=== PATIENT | male | born 1960 | race Caucasian/White ===

== ENCOUNTER 2024-02-03 09:43 | Emergency (ER) | payer MEDICAID, SELFPAY ==
[2024-02-03 09:53] VITALS: BP 107/73; PULSE 102; RESP 19; TEMP 36.9; O2SAT 98; BMI 30.7
--- NOTE | 2024-02-03 10:06 | PD.EDSKIN ---
ED Skin Abcess FB-RME/HPI General Chief complaint: Skin/Abscess/Foreign Body Stated complaint: BUMPS TO BACK TO SCALP/ PAIN IRRITATION Time Seen by Provider: 02/03/24 09:49 Arrival date/time: 02/03/24 09:43 63-year-old male presents emergency department today complaints of rash which is painful ongoing since Saturday patient ports no fever nausea or vomiting no dizziness or weakness Limitations: no limitations Related Data Home Medications ?Medication ?Instructions ?Recorded ?Confirmed clopidogrel 75 mg tablet 75 mg PO DAILY ##0 07/24/13 08/31/20 lisinopril 20 mg tablet (Zestril) 20 mg PO QDAY #0 tabs 07/24/13 08/31/20 albuterol sulfate 90 mcg/actuation 2 puff inhalation Q6H PRN sob 08/31/20 08/31/20 aerosol inhaler atorvastatin 40 mg tablet 40 mg PO QDAY 08/31/20 08/31/20 buspirone 15 mg tablet 15 mg PO BID 08/31/20 08/31/20 fluconazole 200 mg tablet 400 mg PO BID 08/31/20 08/31/20 fluticasone 250 mcg-salmeterol 50 1 inh inhalation QDAY 08/31/20 08/31/20 mcg/dose blistr powdr for inhalation insulin regular human 100 unit/mL 5 - 7 unit subcut TID 08/31/20 08/31/20 injection solution (Humulin R Regular U-100 Insulin) losartan 50 mg tablet 50 mg PO QDAY 08/31/20 08/31/20 montelukast 10 mg tablet 10 mg PO QDAY 08/31/20 08/31/20 Previous Rx's ?Medication ?Instructions ?Recorded meclizine 25 mg tablet 25 mg PO QDAY PRN dizziness #14 02/18/23 tabs hydrocodone 5 mg-acetaminophen 325 1 tab PO BID PRN pain #10 tabs 02/03/24 mg tablet prednisone 10 mg tablet 30 mg (3 x 10 mg) PO BID 3 days 02/03/24 #18 tabs valacyclovir 1 gram tablet 1,000 mg PO TID 7 days #21 tabs 02/03/24 Allergies Allergy/AdvReac Type Severity Reaction Status Date / Time No Known Allergies Allergy Verified 08/31/20 09:25 Review of Systems Review of Systems Systems Reviewed: All systems reviewed, normal except as documented Constitutional Constitutional: Reports system reviewed and no additional complaints, except as documented, Denies fever(s) and Denies headache(s) Eyes Eyes: Reports system reviewed and no additional complaints, except as documented and Denies blurry vision ENT Ears, Nose, Mouth, and Throat: Reports system reviewed and no additional complaints, except as documented, Denies headache(s), Denies nasal congestion and Denies nasal discharge Cardiovascular Cardiovascular: Reports system reviewed and no additional complaints, except as documented, Denies chest pain and Denies dyspnea Respiratory Respiratory: Reports system reviewed and no additional complaints, except as documented, Denies chest congestion, Denies cough and Denies dyspnea Gastrointestinal Gastrointestinal: Reports system reviewed and no additional complaints, except as documented and Denies abdominal pain Integumentary/Breasts Skin/Breast: Reports system reviewed and no additional complaints, except as documented, Reports pruritus, Reports rash and Reports other (Painful rash scalp and neck) Neurologic Neurologic: Reports system reviewed and no additional complaints, except as documented, Reports as per HPI and Denies headache(s) Past Medical History Past Medical History NEUROLOGIC: Positive Neurological Disorders and Cerebrovascular Accident CARDIAC: Positive Cardiac Disorders and Hypertension; Negative Congestive Heart Failure RESPIRATORY: Positive Asthma; Negative Chronic Obstructive Pulmonary Disease (COPD) GENITOURINARY: Negative Renal Disease ENDOCRINE: Positive Diabetes Mellitus Type 2; Negative Diabetes Mellitus Type 1 PSYCHO/SOCIAL: Positive Anxiety Social History SMOKING STATUS: Never smoker SUBSTANCE USE: does not use ED Exam General Limitations: Present no limitations General appearance: Present alert and in no apparent distress Expanded Head Exam Head image: 1. Rash consistent with shingles Eye Eye exam: Present normal appearance, PERRL and EOMI ENT ENT exam: Present normal exam, normal oropharynx and mucous membranes moist Neck Neck exam: Present normal inspection, full ROM and trachea midline Chest Chest inspection: Present normal inspection and symmetric chest wall rise Respiratory Respiratory exam: Present normal lung sounds bilaterally Cardiovascular Cardiovascular exam: Present regular rate, normal rhythm and normal heart sounds Abdominal Exam Abdominal exam: Present soft and normal bowel sounds Extremities Exam Extremities exam: Present normal inspection and full ROM Back Exam Back exam: Present normal inspection and full ROM Neurological Exam Neurological exam: Present alert, oriented X3 and CN II-XII intact Psychiatric Psychiatric exam: Present normal affect and normal mood Skin Skin exam: Present warm, dry, intact and rash (Rash, shingles) Course Quality Measures none Orders Category Date Time Status Dexamethasone Inj [Decadron Inj] Med 02/03/24 10:03 Discontinued 10 mg PO X1 ONE Ketorolac Inj [Toradol Inj] Med 02/03/24 10:03 Discontinued 30 mg IM X1 ONE Vital Signs Vital signs: Vital Signs Temperature 98.5 F 02/03/24 09:53 Pulse Rate 102 H 02/03/24 09:53 Respiratory Rate 19 02/03/24 09:53 Blood Pressure 107/73 02/03/24 09:53 Pulse Oximetry (%) 98 02/03/24 09:53 Oxygen Delivery Method Room Air 02/03/24 09:53 O2 saturation 98% room air within normal limits Skin / Abscess / Foreign Body MDM Narrative MDM Narrative:: 63-year-old male presents emergency department today complaints of rash which is painful ongoing since Saturday patient ports no fever nausea or vomiting no dizziness or weakness On exam patient does not appear ill or toxic patient's not appear make a distress patient does have rash highly consistent with shingles Patient be treated with valacyclovir and prednisone as well as pain medication Patient discharged home in no distress to follow-up with primary care doctor in the next 24 to 48 hours and for any worsening symptoms to return to the ER immediately Patient data External records reviewed:: [facility] previous records Clinical information provided by:: patient Social determinants that could affect healthcare access:: none Patient has the following chronic illnesses:: See history How is presenting disease/condition affected by chronic disease/condition?: exacerbated by Evaluation data The following diagnostics were reviewed and interpreted by me:: other (specify) (N/A) Lab and/or radiology exams considered but not ordered:: Consider not ordered Interpretation Summary: N/A Medications / Prescriptions Medications or Prescriptions considered but not ordered:: Given Medication administrations:: Medication Administration History Discontinued Medications Dexamethasone Sodium Phosphate (Dexamethasone Sod Phos Inj 10 Mg/Ml Vial) 10 mg PO X1 ONE Stop: 02/03/24 10:04 Last Admin: 02/03/24 10:35 Dose: 10 mg Documented By: LF Ketorolac Tromethamine (Ketorolac Inj 30 Mg/Ml Vial) 30 mg IM X1 ONE Stop: 02/03/24 10:04 Last Admin: 02/03/24 10:35 Dose: 30 mg Documented By: ELI Given Consultations Consultation(s) initiated? (list below): No Diagnosis Skin/Abscess Differential Diagnosis: abscess of skin or subcutaneous tissue, urticaria, herpes zoster and cellulitis Most likely diagnosis given after review of the tests above:: Shingles Admission Indicated Admission indicated?: not indicated Admission Request Was there a request for admission?: No Disposition Plan Disposition Plan: Discharge Discharge Attestation Discharge Attestation: The patient and all family members were given an opportunity to ask questions and understood the discharge instructions. Discharge instructions specifically effects, indications for sooner follow up or return to the emergency department, and the expected course of current diagnosis. Patient condition: Stable Discharge Plan Plan Patient Disposition: HOME (Self Care) Disposition Comment: Stable Prescriptions/Referrals Prescriptions/Med Rec: New prednisone 10 mg tablet 30 mg PO BID 3 Days Qty: 18 0RF valacyclovir 1 gram tablet 1,000 mg PO TID 7 Days Qty: 21 0RF hydrocodone-acetaminophen 5-325 mg tablet 1 tab PO BID MDD 10 PRN (Reason: pain) Qty: 10 0RF No Action lisinopril [Zestril] 20 MG tablet 20 mg PO QDAY Qty: 0 clopidogrel 75 MG tablet 75 mg PO DAILY Qty: 0 losartan 50 mg tablet 50 mg PO QDAY atorvastatin 40 mg tablet 40 mg PO QDAY fluticasone propion-salmeterol 250-50 mcg/dose blister with device 1 inh INHALATION QDAY fluconazole 200 mg Tablet 400 mg PO BID Humulin R Regular U-100 Insuln 100 unit/mL solution 5 - 7 unit subcut TID montelukast 10 mg tablet 10 mg PO QDAY albuterol sulfate 90 mcg/actuation Hfa Aerosol Inhaler 2 puff INHALATION Q6H PRN (Reason: sob) buspirone 15 mg tablet 15 mg PO BID meclizine 25 mg tablet 25 mg PO QDAY PRN (Reason: dizziness) Qty: 14 0RF Problem List Clinical Impression: Shingles Patient/Caregiver Discharge Instructions Education Materials: ED Shingles (Herpes Zoster) Additional Instructions: Please follow up with your primary care doctor in the next 24-48hrs for any worsening symptoms return here immediately Print Language: Citizen Of [place] Stand Alone Forms: Radha Award Info., Work/School Release, Patient Portal Info Letter PA/MEN'S LOCKER ROOM ATTENDANT Supervising Physician PA/MEN'S LOCKER ROOM ATTENDANT Supervising Physician: Dr. Dinh
[2024-02-03] MEDS: KETOROLAC INJ 30 MG/ML VIAL IM (10:35)
[2024-02-03] MEDS: DEXAMETHASONE SOD PHOS INJ 10 MG/ML VIAL PO (10:35)
== END 2024-02-03 11:23 | disposition home or self-care (01) ==
PROVIDERS: Emergency Provider Emergency Medicine; PCP Nurse Practitioner Family
DX: B02.9 Zoster without complications (principal)
CPT/HCPCS: 96372; 99283; J1100; J1885

== ENCOUNTER 2024-04-09 11:28 | Outpatient (RCR) | payer MEDICAID, SELFPAY ==
--- NOTE | 2024-04-09 13:45 | CTCFLWUP_ITS ---
Patient: VIRAJ BARTHOLOMEW : 1960 Page 2 of 2 FOLLOW UP NOTE DATE OF SERVICE: 04/09/2024 NAME: VIRAJ BARTHOLOMEW ACCOUNT: [id number] : 1960 AGE: 63 INTERVAL HISTORY: Patient here for follow-up on CLL. Patient companied by his . Patient says he is fatigued all t he time. He has a diabetes for which he is on multiple medications. He also has fatty liver. Denie s any bleeding or bruising. No night sweats no appetite changes or weight loss. No swollen glands ONCOLOGY HISTORY: DIAGNOSIS: Chronic lymphocytic leukemia DATE OF DIAGNOSIS: 05/31/2023 HISTORY OF PRESENT ILLNESS: Patient is here for follow-up for CLL. Patient is accompanied by . Denies any bleeding or bruisi ng. No night sweats no appetite changes or weight loss. No swollen glands Flow cytometry was ordered due to leukocytosis. Flow cytometry showed abnormal CD5+ B-cell populati on 21% of leukocytes with B-cell chronic lymphocytic leukemia/small lymphocytic lymphoma (CLL/SLL) im munophenotype, 11/14/2023. CT of chest abdomen and pelvis done on 12/16/2023 showed stable cavitary ma ss left upper lobe, multiple periaortic pericaval lymph nodes, 12/16/2023. Patient only complaint is feeling tired, reports he has been feeling tired for many years. Patient reports good appetite. Jaqueline ent ambulating well without assistance. Patient former smoker for 15 years, quit ?long time ago?. P atient denies fever, denies night sweats, abdominal pain chest pain cough weight loss. HISTORY: Viraj Drake is a 63-year-old Yoruba-speaking male, retired. Patient was refe rred due to leukocytosis. WBCs are 15.0 and lymphs absolute are 6.8, 10/09/2023. Patient reports fee ling tired for many years. Patient denies any other concerns or complaints. 05/31/2023: WBC 13.9, ANC 5.7, lymphs absolute 6.9, hemoglobin 15.5, MCV 97, platelets 275,000, creatin ine 0.77 10/09/2023: WBC 15.0, ANC 6.8, lymphs absolute 6.8, hemoglobin 15.3, MCV 98, platelets 256,000, creati nine 0.80 OTHER MEDICAL HISTORY/CONDITIONS: HTN Hyperlipidemia Diabetes CVA -12/2011 LLE?vein?stripping?-?1984 FAMILY HISTORY: Denies cancer in family Family Cancer History - Denied SOCIAL HISTORY: Occupational History - Retired/disabled Education Level - Completed 10th grade Marital Status - Tobacco Use Note - Quit long time ago - Smoked pack every 2 days for 15yrs ETOH Use Note - Denies Drug Note - Denies Abuse/Neglect Note - Denies Social History Note 2 - Lives wtih MEDICATIONS: 1. amlodipine - 10 mg 1 tab Daily 2. atorvastatin - 40 mg 1 tab Daily 3. Brilinta - 90 mg 1 tab Daily 4. cetirizine - 10 mg 1 tab Daily 5. ibuprofen - 800 mg 1 tab Three times a day 6. Lantus Solostar - 100 unit/mL (3 mL) 50 Unit Daily 7. NovoLIN R Flexpen - 100 unit/mL (3 mL) 15 Units Three times a day Medications Last Reconciled by Snehal Marcos MA on 04/09/2024 ALLERGIES: No Known Drug Allergies REVIEW OF SYSTEMS: A complete 14-point review of systems was performed and is negative except as noted in interval histo ry. PHYSICAL EXAMINATION: VITAL SIGNS: PAIN: 0 - No pain ECOG Performance Status: 1 - Symptomatic; ambulatory; restricted in strenuous activity GENERAL APPEARANCE: Appears well, in no apparent distress, appropriately interactive. HEENT: Normocephalic, no temporal wasting, normal conjunctiva, no scleral icterus, normal hearing, li ps without lesions, neck normal range of motion. CARDIOVASCULAR: Not assessed. PULMONARY: Normal respiratory effort, no respiratory distress or use of accessory muscles, speaking i n full sentences, no tachypnea. EXTREMITIES: No pedal edema or cyanosis. SKIN: Normal skin appearance. NEUROLOGIC: Alert and oriented x4. PSHYCHIATRIC: Appropriate affect, mood normal, behavior normal, intact thought and speech. LABORATORY DATA: I have personally reviewed and interpreted each of the patient?s relevant lab tests, abnormal finding s are below: Date ASSESSMENT/PLAN: Chronic lymphocytic leukemia Patient do not have any palpable lymph nodes Reviewed old scans As patient have fatigue we can rescan his body with PET scan to see lymph node size Also patient have lytic lesion in the lung which is cavitary I will check for tuberculosis as well as valley fever Will send pulmonary consult to see if patient has any treatable lung lesion Patient may benefit from bronchoscopy I will follow on the labs Extensively counseled on plant-based diet today reduced risk of malignancy as well as to help with di abetic control CBC CMP QuantiFERON valley fever IgM testing RETURN TO CLINIC: 4 weeks BILLING AND COMPLIANCE: I reviewed external records from providers outside my specialty as summarized above. I spent a total of 50 minutes on this patient?s care on the day of their visit excluding time spent related to any bi lled procedures. This time includes time spent with the patient as well as time spent documenting in the medical record, reviewing patients records and tests, obtaining history, placing orders, communi cating with other healthcare professionals, counseling the patient, family or caregiver, and/or care coordination for the diagnoses above. Electronically Signed by: David Lyons MD T: 1:42 PM CC: PCP: Sandeep([facility])[place] Referring: Sandeep([facility])[place] This document was completed utilizing speech recognition software. Grammatical errors, random word in sertions, pronoun errors, and incomplete sentences are an occasional consequence of this system due t o software limitations, ambient noise, and hardware issues. Any formal questions or concerns about th e content, text or information contained within the body of this dictation should be directly address ed to the provider for clarification.
== END 2024-04-24 23:59 | disposition home or self-care (01) ==
LOC: SCTC 11:28
PROVIDERS: PCP Nurse Practitioner Family; Referring Provider Nurse Practitioner Family; Visit Provider Internal Medicine Hematology & Oncology
DX: C91.10 Chronic lymphocytic leukemia of B-cell type not having achieved remission (principal); E11.9 Type 2 diabetes mellitus without complications; K76.0 Fatty (change of) liver, not elsewhere classified; J98.4 Other disorders of lung; Z79.4 Long term (current) use of insulin
CPT/HCPCS: 99212; G0463

== ENCOUNTER → 2024-05-04 | Outpatient (CLI) | payer MEDICAID, SELFPAY ==
--- NOTE | 2024-05-04 | XR_ITS ---
Examination: Lumbar spine, 5 views Technique: Lumbar spine AP, lateral, coned lateral lower lumbar spine, bilateral obliques 5 views Exam date and time: May 04, 2024 1242 hours INDICATIONS: Low back pain beginning 5 months ago. FINDINGS: Moderate osteopenia No lumbar fracture No spondylolisthesis Mild to moderate lumbar degenerative disc disease, most prominent L4-L5, L5-S1 IMPRESSION: Mild to moderate lumbar degenerative disc disease, most prominent L4-L5, L5-S1
== END | disposition home or self-care (01) ==
LOC: CDIM 11:42
PROVIDERS: PCP Nurse Practitioner Family; Referring Provider Nurse Practitioner Family; Visit Provider Nurse Practitioner Family
DX: M51.369 Other intervertebral disc degeneration, lumbar region without mention of lumbar back pain or lower extremity pain (principal); M51.379 Other intervertebral disc degeneration, lumbosacral region without mention of lumbar back pain or lower extremity pain
CPT/HCPCS: 72110

== ENCOUNTER 2024-05-12 13:04 | Outpatient (RCR) | payer MEDICAID, SELFPAY | END 2024-05-22 23:59 | disposition home or self-care (01) | LOC: SCTC 13:04 | PROVIDERS: PCP Nurse Practitioner Family; Referring Provider Nurse Practitioner Family; Visit Provider Internal Medicine Hematology & Oncology | DX: C91.10 Chronic lymphocytic leukemia of B-cell type not having achieved remission (principal); J98.4 Other disorders of lung | CPT/HCPCS: 99212; G0463 ==

== ENCOUNTER → 2024-06-04 | Outpatient (CLI) | payer MEDICAID, SELFPAY ==
--- NOTE | 2024-06-04 10:15 | XR_ITS ---
EXAMINATION: PET/CT FUSION SKULL TO THIGH EXAM DATE AND TIME: June 04, 2024, 10:[address] abdomen pelvis 12/16/2023 Indications: Diagnosis leukocytosis, history 18 x 16 mm cavitary spiculated pulmonary mass left upper lobe on CT chest April 21, 2021, multiple periaortic pericaval lymph nodes on CT chest abdomen 12/16/2023 CTDI:vol (mGy) 6 DLP: (mGycm) 647 PROCEDURE: 16.9 mCi FDG was administered intravenously To allow for distribution and uptake of radiotracer, the patient was allowed to rest quietly in a shielded room. Imaging was performed on an integrated 16-slice PET/CT scanner, with scanning from the skull base to the mid thigh. CT scanning was performed without oral or intravenous contrast material. FINDINGS: Head and Neck: There is no juliette hypermetabolism in the neck. The visualized portions of the brain are normal in appearance on CT. Chest: 11 mm cavitary mass left upper lobe compared to [address] chest December 16, 2023 Abdomen and Pelvis: Non hypermetabolic pericaval periaortic lymph nodes are symmetrical in size compared to the CT abdomen 12/16/2023 No new adenopathy. Musculoskeletal: Marrow uptake is within normal range. IMPRESSION: Stable 11 mm cavitary mass left upper lobe compared to CT chest Stable abdominal lymphadenopathy compared to CT abdomen December 16, 2023
== END | disposition home or self-care (01) ==
PROVIDERS: PCP Nurse Practitioner Family; Referring Provider Internal Medicine Hematology & Oncology; Visit Provider Internal Medicine Hematology & Oncology
DX: R59.0 Localized enlarged lymph nodes (principal)
CPT/HCPCS: 78815; A9552

== ENCOUNTER 2024-07-22 14:18 | Outpatient (RCR) | payer MEDICAID, SELFPAY ==
--- NOTE | 2024-07-29 12:36 | CTCFLWUP_ITS ---
Patient: VIRAJ BARTHOLOMEW : 1960 Page 2 of 2 FOLLOW UP NOTE DATE OF SERVICE: 07/22/2024 NAME: VIRAJ BARTHOLOMEW ACCOUNT: [id number] : 1960 AGE: 63 INTERVAL HISTORY: Viraj, a male with a history of a small cavitary lung mass, presented for follow-up with no new complaints, stable weight, and good appetite. He reported consuming raw foods daily for colon health. Recent PET-CT showed stable 11mm cavitary mass in left upper lobe and stable abdominal lymph nodes. Labs revealed elevated WBC, eosinophils, bilirubin, and liver enzymes. Testing for coccidioidomycosis, tuberculosis, and HIV was negative. Management included pulmonology referral to Dr. Rachel, PSA testing, comprehensive metabolic panel, and 6-month follow-up. Chief Complaint No new complaints, follow-up visit History of Present Illness Viraj Gómez, a male patient with a history of a small cavitary mass in the left upper lobe of the lung, presents for a follow-up visit. The patient reports no new complaints and states that his weight is stable and his appetite is good. Mr. Gómez mentions that he has been eating a diet rich in raw foods such as apples and cucumbers daily, in an effort to maintain colon health. He expresses concern about not receiving a call or letter regarding a referral for further evaluation of his lung lesions. The patient confirms that he completed a PET scan in May as ordered. Medical History - Small 11-millimeter cavitary mass in the left upper lobe, stable - Small, stable lymph nodes in the abdomen Social History - Diet: Patient reports eating a lot of raw foods like apples and cucumbers daily Review of Systems General: Negative for weight changes. Positive for good appetite. Laboratory, Imaging, and Diagnostic Test Results - PET-CT scan (May 2024): - 11-millimeter cavitary mass in the left upper lobe (stable) - Small lymph nodes in the abdomen (stable) - No bone involvement - Overall negative for significant findings - Blood work (date not specified): - WBC: Elevated - Eosinophils: Elevated - Bilirubin: Elevated - Liver enzymes: Slightly elevated - Coccidioidomycosis test: Negative - Tuberculosis test: Negative - HIV test: Negative ONCOLOGY HISTORY: DIAGNOSIS: Chronic lymphocytic leukemia DATE OF DIAGNOSIS: 05/31/2023 TREATMENT HISTORY: Care?Plan Start?Date Cycle Day Intent HISTORY OF PRESENT ILLNESS: Patient is here for follow-up for CLL. Patient is accompanied by . Denies any bleeding or bruising. No night sweats no appetite changes or weight loss. No swollen glands Flow cytometry was ordered due to leukocytosis. Flow cytometry showed abnormal CD5+ B-cell population 21% of leukocytes with B-cell chronic lymphocytic leukemia/small lymphocytic lymphoma (CLL/SLL) immunophenotype, 11/14/2023. CT of chest abdomen and pelvis done on 12/16/2023 showed stable cavitary mass left upper lobe, multiple periaortic pericaval lymph nodes, 12/16/2023. Patient only complaint is feeling tired, reports he has been feeling tired for many years. Patient reports good appetite. Patient ambulating well without assistance. Patient former smoker for 15 years, quit ?long time ago?. Patient denies fever, denies night sweats, abdominal pain chest pain cough weight loss. HISTORY: Viraj Drake is a 63-year-old [place]-speaking male, retired. Patient was referred due to leukocytosis. WBCs are 15.0 and lymphs absolute are 6.8, 10/09/2023. Patient reports feeling tired for many years. Patient denies any other concerns or complaints. 05/31/2023: WBC 13.9, ANC 5.7, lymphs absolute 6.9, hemoglobin 15.5, MCV 97, platelets 275,000, creatinine 0.77 10/09/2023: WBC 15.0, ANC 6.8, lymphs absolute 6.8, hemoglobin 15.3, MCV 98, platelets 256,000, creatinine 0.80 OTHER MEDICAL HISTORY/CONDITIONS: HTN Hyperlipidemia Diabetes CVA -12/2011 LLE?vein?stripping?-?1984 FAMILY HISTORY: Denies cancer in family Family Cancer History - Denied SOCIAL HISTORY: Occupational History - Retired/disabled Education Level - Completed 10th grade Marital Status - Tobacco Use Note - Quit long time ago - Smoked pack every 2 days for 15yrs ETOH Use Note - Denies Drug Note - Denies Abuse/Neglect Note - Denies Social History Note 2 - Lives wtih MEDICATIONS: 1. amlodipine - 5 mg 1 tab Daily 2. atorvastatin - 40 mg 1 tab Daily 3. Brilinta - 90 mg 1 tab Daily 4. cetirizine - 10 mg 1 tab Daily 5. ibuprofen - 800 mg 1 tab Three times a day 6. Lantus Solostar - 100 unit/mL (3 mL) 50 Unit Daily 7. NovoLIN R Flexpen - 100 unit/mL (3 mL) 15 Units Three times a day 8. Vitamin D3 - 5,000 unit 1 tab Weekly Medications Last Reconciled by Zulay Akhtar MA on 07/22/2024 ALLERGIES: No Known Drug Allergies REVIEW OF SYSTEMS: A complete 14-point review of systems was performed and is negative except as noted in interval history. PHYSICAL EXAMINATION: VITAL SIGNS: Temperature?98.3, B/P?110/70, Oxygen?Saturation?95% Weight?188?lbs PAIN: 0 - No pain ECOG Performance Status: 0 - Asymptomatic and fully active GENERAL APPEARANCE: Appears well, in no apparent distress, appropriately interactive. HEENT: Normocephalic, no temporal wasting, normal conjunctiva, no scleral icterus, normal hearing, lips without lesions, neck normal range of motion. CARDIOVASCULAR: Not assessed. PULMONARY: Normal respiratory effort, no respiratory distress or use of accessory muscles, speaking in full sentences, no tachypnea. EXTREMITIES: No pedal edema or cyanosis. SKIN: Normal skin appearance. NEUROLOGIC: Alert and oriented x4. PSHYCHIATRIC: Appropriate affect, mood normal, behavior normal, intact thought and speech. LABORATORY DATA: I have personally reviewed and interpreted each of the patient?s relevant lab tests, abnormal findings are below: Date ASSESSMENT/PLAN: Chronic lymphocytic leukemia Patient do not have any palpable lymph nodes Reviewed old scans patient have lytic lesion in the lung which is cavitary negative for tuberculosis as well as valley fever Will send pulmonary consult to see if patient has any treatable lung lesion Patient may benefit from bronchoscopy I will follow on the labs Extensively counseled on plant-based diet today reduced risk of malignancy as well as to help with diabetic control CBC CMP tuberculosis QuantiFERON valley fever IgM testing results reviewed and are all negative Patient's LDH and haptoglobin are normal and do not reveal any hemolysis As patient do not have tuberculosis or valley fever cavitary lesion in the lungs need evaluation Viraj Gómez, male patient, presenting for follow-up of previously identified lung lesion and lymph node abnormalities. Pulmonary cavitary mass Assessment: Patient has an 11-millimeter cavitary mass in the left upper lobe, which has remained stable since previous imaging. A PET-CT scan was completed in May, showing no growth of the mass and no evidence of metastatic disease. Differential diagnoses for the cavitary lesion may include infectious etiologies (ruled out tuberculosis), inflammatory conditions, or neoplastic processes. However, given the stability of the lesion and negative PET scan, malignancy is less likely. Plan: - Referral to pulmonology specialist (Dr. Rachel) for further evaluation of the lytic lesions in lungs - Patient instructed to call the office to schedule an appointment - Follow-up appointment in 6 months - Complete blood work prior to next appointment Lymphadenopathy Assessment: Patient has small, stable lymph nodes in the abdomen, as evidenced by the recent PET-CT scan. The stability and small size of these lymph nodes suggest a lower likelihood of malignancy or significant pathology. Plan: - Continue monitoring through imaging studies - Reassess at 6-month follow-up appointment Elevated liver enzymes Assessment: Recent laboratory results show elevated liver enzymes. This finding requires further investigation to determine the underlying cause, which could include medication side effects, alcohol use, viral hepatitis, or other liver pathologies. Plan: - Order comprehensive metabolic panel to be completed before next appointment - Assess results at 6-month follow-up Prostate health screening Assessment: Patient reports no current prostate monitoring. Given the patient's gender and potential age-related risk factors, prostate screening is recommended. Plan: - Check prostate-specific antigen (PSA) levels with next set of blood work - Evaluate results at 6-month follow-up appointment ORDERS: Order # Description [id number] Comprehensive Metabolic Panel - 12 + CBC with Auto Diff + MD Follow Up 6 Month + PSA RETURN TO CLINIC: 6 months BILLING AND COMPLIANCE: I reviewed external records from providers outside my specialty as summarized above. I spent a total of 50 minutes on this patient?s care on the day of their visit excluding time spent related to any billed procedures. This time includes time spent with the patient as well as time spent documenting in the medical record, reviewing patients records and tests, obtaining history, placing orders, communicating with other healthcare professionals, counseling the patient, family or caregiver, and/or care coordination for the diagnoses above. Electronically Signed by: David Lyons MD T: 12:33 PM CC: PCP: Sandeep([facility])[place] Referring: Sandeep([facility] This document was completed utilizing speech recognition software. Grammatical errors, random word insertions, pronoun errors, and incomplete sentences are an occasional consequence of this system due to software limitations, ambient noise, and hardware issues. Any formal questions or concerns about the content, text or information contained within the body of this dictation should be directly addressed to the provider for clarification.
== END 2024-07-22 23:59 | disposition home or self-care (01) ==
LOC: SCTC 14:18
PROVIDERS: PCP Nurse Practitioner Family; Referring Provider Nurse Practitioner Family; Visit Provider Internal Medicine Hematology & Oncology
DX: C91.10 Chronic lymphocytic leukemia of B-cell type not having achieved remission (principal); R91.8 Other nonspecific abnormal finding of lung field; R59.0 Localized enlarged lymph nodes; R74.8 Abnormal levels of other serum enzymes; E11.9 Type 2 diabetes mellitus without complications; Z79.4 Long term (current) use of insulin
CPT/HCPCS: 99212; G0463

== ENCOUNTER 2024-12-04 12:40 | Emergency (ER) | payer MEDICARE, MEDICAID, SELFPAY ==
[2024-12-04 12:41] VITALS: BMI 25.8
[2024-12-04 12:48] VITALS: BP 119/76; PULSE 69; RESP 18; TEMP 36.4; O2SAT 99
--- NOTE | 2024-12-04 13:01 | XR_ITS ---
Examination: Foot, left, 3 views Technique: AP, oblique, lateral views foot, 3 views Date and time of exam: December 04, 2024 1303 hours INDICATIONS: Sudden onset foot pain beginning 2 days ago. FINDINGS: No fracture or dislocation. No cortical bone destruction. 10 mm plantar bony calcaneal spur. IMPRESSION: 10 mm plantar bony calcaneal spur
[2024-12-04] MEDS: IBUPROFEN TAB 400 MG TABLET 800 MG PO (13:19)
[2024-12-04] MEDS: DIPHTH,PERTUSS(ACELL),TET VAC 0.5 ML SYR- ADULT IMi (13:22)
--- NOTE | 2024-12-04 13:26 | PD.EDANKLE ---
Lower Extremity Injury RME/HPI General Chief Complaint: Ankle/Foot Injury Stated Complaint: LEFT FOOT PAIN AND SWELLING Time Seen by Provider: 12/04/24 12:41 Source: patient Arrival date/time: 12/04/24 12:40 64-year-old male with a history of hyperlipidemia, type 2 diabetes, presents to the emergency room with a chief complaint of left foot pain and swelling to the sole of his foot x 3 days. Patient states he believes he possibly stepped on something. Mode of arrival: ambulatory Limitations: no limitations Related Data Home Medications ?Medication ?Instructions ?Recorded ?Confirmed clopidogrel 75 mg tablet 75 mg PO DAILY ##0 07/24/13 08/31/20 lisinopril 20 mg tablet (Zestril) 20 mg PO QDAY #0 tabs 07/24/13 08/31/20 albuterol sulfate 90 mcg/actuation 2 puff inhalation Q6H PRN sob 08/31/20 08/31/20 aerosol inhaler atorvastatin 40 mg tablet 40 mg PO QDAY 08/31/20 08/31/20 buspirone 15 mg tablet 15 mg PO BID 08/31/20 08/31/20 fluconazole 200 mg tablet 400 mg PO BID 08/31/20 08/31/20 fluticasone 250 mcg-salmeterol 50 1 inh inhalation QDAY 08/31/20 08/31/20 mcg/dose blistr powdr for inhalation insulin regular human 100 unit/mL 5 - 7 unit subcut TID 08/31/20 08/31/20 injection solution (Humulin R Regular U-100 Insulin) losartan 50 mg tablet 50 mg PO QDAY 08/31/20 08/31/20 montelukast 10 mg tablet 10 mg PO QDAY 08/31/20 08/31/20 Previous Rx's ?Medication ?Instructions ?Recorded meclizine 25 mg tablet 25 mg PO QDAY PRN dizziness #14 02/18/23 tabs hydrocodone 5 mg-acetaminophen 325 1 tab PO BID PRN pain #10 tabs 02/03/24 mg tablet cephalexin 500 mg capsule 500 mg PO BID 7 days #14 caps 12/04/24 Allergies Allergy/AdvReac Type Severity Reaction Status Date / Time No Known Allergies Allergy Verified 12/04/24 12:41 Review of Systems Review of Systems Systems Reviewed: All systems reviewed, normal except as documented Constitutional Constitutional: Reports system reviewed and no additional complaints, except as documented, Denies fatigue, Denies fever(s), Denies headache(s) and Denies weakness Eyes Eyes: Reports system reviewed and no additional complaints, except as documented, Denies blurry vision and Denies change in vision ENT Ears, Nose, Mouth, and Throat: Reports system reviewed and no additional complaints, except as documented, Denies otalgia, Denies headache(s), Denies nasal congestion, Denies throat swelling and Denies vertigo Cardiovascular Cardiovascular: Reports system reviewed and no additional complaints, except as documented, Denies chest pain, Denies dyspnea and Denies dyspnea on exertion Respiratory Respiratory: Reports system reviewed and no additional complaints, except as documented, Denies chest congestion, Denies cough, Denies dyspnea, Denies dyspnea on exertion and Denies wheezing Gastrointestinal Gastrointestinal: Reports system reviewed and no additional complaints, except as documented, Denies abdominal pain, Denies cramping, Denies nausea and Denies vomiting Genitourinary Genitourinary: Reports system reviewed and no additional complaints, except as documented, Denies dysuria and Denies hematuria Musculoskeletal Musculoskeletal: Reports system reviewed and no additional complaints, except as documented and Denies back pain Integumentary/Breasts Skin/Breast: Reports system reviewed and no additional complaints, except as documented and Reports wounds Neurologic Neurologic: Reports system reviewed and no additional complaints, except as documented, Denies confusion, Denies headache(s), Denies lack of coordination, Denies vertigo and Denies weakness Psychiatric Psychiatric: Reports system reviewed and no additional complaints, except as documented, Denies anxiety, Denies confusion, Denies depression, Denies paranoia, Denies suicidal ideation and Denies tactile hallucinations Endocrine Endocrine: Reports system reviewed and no additional complaints, except as documented and Denies fatigue Hematologic/Lymphatic Hematologic/Lymphatic: Reports system reviewed and no additional complaints, except as documented and Denies lymphadenopathy Allergic/Immunologic Allergic/Immunologic: Reports system reviewed and no additional complaints, except as documented, Denies throat swelling, Denies urticaria and Denies wheezing ED Exam General Limitations: Present no limitations General appearance: Present alert and in no apparent distress Head Head exam: Present atraumatic Eye Eye exam: Present normal appearance, PERRL and EOMI ENT ENT exam: Present normal exam, normal oropharynx and mucous membranes moist Neck Neck exam: Present normal inspection, full ROM and trachea midline Chest Chest inspection: Present normal inspection and symmetric chest wall rise Respiratory Respiratory exam: Present normal lung sounds bilaterally Cardiovascular Cardiovascular exam: Present regular rate, normal rhythm and normal heart sounds Abdominal Exam Abdominal exam: Present soft and normal bowel sounds Extremities Exam Extremities exam: Present normal inspection and full ROM Expanded Lower Extremity Exam Hip/Pelvis exam: Present normal inspection Upper leg exam: Present normal inspection Knee exam: Present normal inspection Lower leg exam: Present normal inspection Ankle exam: Present normal inspection Foot/toe exam: Present full ROM, tenderness, abrasion and erythema Gait: observed and normal Back Exam Back exam: Present normal inspection and full ROM Neurological Exam Neurological exam: Present alert, oriented X3 and CN II-XII intact Psychiatric Psychiatric exam: Present normal affect and normal mood Skin Skin exam: Present warm, dry, intact and normal color Course Quality Measures none Orders Category Date Time Status XR foot comp LT min 3V Stat Exams 12/04/24 13:01 Completed Ibuprofen Tab [Motrin Tab] Med 12/04/24 13:01 Discontinued 800 mg PO X1 ONE TET,DIP/PERT AC (Adult)-Tdap [Boostrix Adult (Tdap) Med 12/04/24 13:01 Discontinued Vacc] 0.5 ml IMI .ONCE ONE Vital Signs Vital signs: Vital Signs Temperature 97.6 F 12/04/24 12:48 Pulse Rate 69 12/04/24 12:48 Respiratory Rate 18 12/04/24 12:48 Blood Pressure 119/76 12/04/24 12:48 Pulse Oximetry (%) 99 12/04/24 12:48 Oxygen Delivery Method Room Air 12/04/24 12:48 Extremity Injury, Lower MDM Narrative MDM Narrative:: 64-year-old male with a history of hyperlipidemia, type 2 diabetes, presents to the emergency room with a chief complaint of left foot pain and swelling to the sole of his foot x 3 days. Patient states he believes he possibly stepped on something. Patient is hemodynamically stable and in no apparent distress Physical examination shows a small wound to the sole of his left foot. Patient states he believes he stepped on something and it is above possible puncture wound. An x-ray was completed and is negative for any foreign body. There is some erythema and warmth to the touch. Tetanus vaccination was updated and oral antibiotics are sent to the patient's pharmacy Patient was discharged and educated to follow-up with primary care provider in the next 24 to 48 hours and return to the emergency room for any evidence of worsening signs or symptoms Patient data External records reviewed:: [facility] previous records Clinical information provided by:: patient Social determinants that could affect healthcare access:: none Patient has the following chronic illnesses:: No chronic illness How is presenting disease/condition affected by chronic disease/condition?: no chronic disease Evaluation data The following diagnostics were reviewed and interpreted by me:: lab results and radiology exam(s) Lab and/or radiology exams considered but not ordered:: Labs and radiology exams considered and ordered Interpretation Summary: X-ray of the left foot-FINDINGS: No fracture or dislocation. No cortical bone destruction. 10 mm plantar bony calcaneal spur. IMPRESSION: 10 mm plantar bony calcaneal spur Medications / Prescriptions Medications or Prescriptions considered but not ordered:: Medication given Medication administrations:: Medication Administration History Discontinued Medications Diphtheria/Tetanus/Acell Pertussis (Diphth,Pertuss(Acell),Tet Vac 0.5 Ml Syr- Adult) 0.5 ml IMi .ONCE ONE Stop: 12/04/24 13:02 Last Admin: 12/04/24 13:22 Dose: 0.5 ml Documented By: Ibuprofen (Ibuprofen Tab 400 Mg Tablet) 800 mg PO X1 ONE Stop: 12/04/24 13:02 Last Admin: 12/04/24 13:19 Dose: 800 mg Documented By: Medication given Consultations Consultation(s) initiated? (list below): No Diagnosis Extremity Injury, Lower Differential Diagnosis: puncture wound of foot and other (Foreign body in foot) Most likely diagnosis given after review of the tests above:: Puncture wound of foot Admission Indicated Admission indicated?: not indicated Admission Request Was there a request for admission?: No Disposition Plan Disposition Plan: Discharge Discharge Attestation Discharge Attestation: The patient and all family members were given an opportunity to ask questions and understood the discharge instructions. Discharge instructions specifically effects, indications for sooner follow up or return to the emergency department, and the expected course of current diagnosis. Patient condition: Stable Discharge Plan Plan Patient Disposition: HOME (Self Care) Discharge Disposition comment: Stable Prescriptions/Referrals Prescriptions/Med Rec: New cephalexin 500 mg capsule 500 mg PO BID 7 Days Qty: 14 0RF No Action lisinopril [Zestril] 20 MG tablet 20 mg PO QDAY Qty: 0 clopidogrel 75 MG tablet 75 mg PO DAILY Qty: 0 losartan 50 mg tablet 50 mg PO QDAY atorvastatin 40 mg tablet 40 mg PO QDAY fluticasone propion-salmeterol 250-50 mcg/dose blister with device 1 inh INHALATION QDAY fluconazole 200 mg Tablet 400 mg PO BID Humulin R Regular U-100 Insuln 100 unit/mL solution 5 - 7 unit subcut TID montelukast 10 mg tablet 10 mg PO QDAY albuterol sulfate 90 mcg/actuation Hfa Aerosol Inhaler 2 puff INHALATION Q6H PRN (Reason: sob) buspirone 15 mg tablet 15 mg PO BID meclizine 25 mg tablet 25 mg PO QDAY PRN (Reason: dizziness) Qty: 14 0RF hydrocodone-acetaminophen 5-325 mg tablet 1 tab PO BID MDD 10 PRN (Reason: pain) Qty: 10 0RF Referrals: No Primary/Family,Physician [Primary Care Provider] - In 1 week Problem List Clinical Impression: Puncture wound of foot Patient/Caregiver Discharge Instructions Education Materials: ED Puncture Wound (Foot) Additional Instructions: Please follow-up with your primary care provider in the next 24 to 48 hours X-ray of your foot was negative for any acute findings. There is no foreign body. There is an incidental finding of a bone spur that may be causing your pain. Antibiotics were sent to your pharmacy please pick them up and take them as indicated For any evidence of worsening signs or symptoms return to emergency room immediately Print Language: Romansh Stand Alone Forms: Radha Award Info., Patient Portal Info Letter Vaccines Vaccines Given During Stay: TDaP PA/SCALLOP DREDGER Supervising Physician PA/GRETA Supervising Physician: Dr. Rucker
== END 2024-12-04 13:52 | disposition home or self-care (01) ==
PROVIDERS: Emergency Provider Nurse Practitioner Family
DX: S91.332A Puncture wound without foreign body, left foot, initial encounter (principal); M77.32 Calcaneal spur, left foot; X58.XXXA Exposure to other specified factors, initial encounter
CPT/HCPCS: 73630; 90471; 90715; 99282; A9270

== ENCOUNTER 2025-01-21 10:57 | Outpatient (RCR) | payer MEDICARE, MEDICAID, SELFPAY ==
--- NOTE | 2025-02-08 05:35 | CTCFLWUP_ITS ---
Patient: VIRAJ BARTHOLOMEW : 1960 Page 5 of 5 FOLLOW UP NOTE DATE OF SERVICE: 01/21/2025 NAME: VIRAJ BARTHOLOMEW ACCOUNT: [id number] : 1960 AGE: 64 INTERVAL HISTORY: Viraj, a male with a history of a small cavitary lung mass, presented for follow-up with no new complaints, stable weight, and good appetite. He reported consuming raw foods daily for colon health. Recent PET-CT on 05/2024 showed stable 11mm cavitary mass in left upper lobe and stable abdominal lymph nodes compared to ct scan on . Labs revealed elevated WBC, eosinophils, bilirubin, and liver enzymes. Testing for coccidioidomycosis, tuberculosis, and HIV was negative. Management included pulmonology referral to Dr. Rachel, PSA testing, comprehensive metabolic panel, and 6-month follow-up. Chief Complaint No new complaints, follow-up visit History of Present Illness Viraj Gómez, a male patient with a history of a small cavitary mass in the left upper lobe of the lung, presents for a follow-up visit. The patient reports no new complaints and states that his weight is stable and his appetite is good. Mr. Gómez mentions that he has been eating a diet rich in raw foods such as apples and cucumbers daily, in an effort to maintain colon health. He expresses concern about not receiving a call or letter regarding a referral for further evaluation of his lung lesions. The patient confirms that he completed a PET scan in May as ordered. Medical History - Small 11-millimeter cavitary mass in the left upper lobe, stable - Small, stable lymph nodes in the abdomen Social History - Diet: Patient reports eating a lot of raw foods like apples and cucumbers daily Review of Systems General: Negative for weight changes. Positive for good appetite. Laboratory, Imaging, and Diagnostic Test Results - PET-CT scan (May 2024): - 11-millimeter cavitary mass in the left upper lobe (stable) - Small lymph nodes in the abdomen (stable) - No bone involvement - Overall negative for significant findings - Blood work (date not specified): - WBC: Elevated - Eosinophils: Elevated - Bilirubin: Elevated - Liver enzymes: Slightly elevated - Coccidioidomycosis test: Negative - Tuberculosis test: Negative - HIV test: Negative ONCOLOGY HISTORY: DIAGNOSIS: Chronic lymphocytic leukemia DATE OF DIAGNOSIS: 05/31/2023 TREATMENT HISTORY: Care?Plan Start?Date Cycle Day Intent HISTORY OF PRESENT ILLNESS: Patient is here for follow-up for CLL. Patient is accompanied by . Denies any bleeding or bruising. No night sweats no appetite changes or weight loss. No swollen glands Flow cytometry was ordered due to leukocytosis. Flow cytometry showed abnormal CD5+ B-cell population 21% of leukocytes with B-cell chronic lymphocytic leukemia/small lymphocytic lymphoma (CLL/SLL) immunophenotype, 11/14/2023. CT of chest abdomen and pelvis done on 12/16/2023 showed stable cavitary mass left upper lobe, multiple periaortic pericaval lymph nodes, 12/16/2023. Patient only complaint is feeling tired, reports he has been feeling tired for many years. Patient reports good appetite. Patient ambulating well without assistance. Patient former smoker for 15 years, quit ?long time ago?. Patient denies fever, denies night sweats, abdominal pain chest pain cough weight loss. HISTORY: Viraj Drake is a 64-year-old [place]-speaking male, retired. Patient was referred due to leukocytosis. WBCs are 15.0 and lymphs absolute are 6.8, 10/09/2023. Patient reports feeling tired for many years. Patient denies any other concerns or complaints. 05/31/2023: WBC 13.9, ANC 5.7, lymphs absolute 6.9, hemoglobin 15.5, MCV 97, platelets 275,000, creatinine 0.77 10/09/2023: WBC 15.0, ANC 6.8, lymphs absolute 6.8, hemoglobin 15.3, MCV 98, platelets 256,000, creatinine 0.80 OTHER MEDICAL HISTORY/CONDITIONS: HTN Hyperlipidemia Diabetes CVA -12/2011 LLE?vein?stripping?-?1984 FAMILY HISTORY: Denies cancer in family Family Cancer History - Denied SOCIAL HISTORY: Occupational History - Retired/disabled Education Level - Completed 10th grade Marital Status - Tobacco Use Note - Quit long time ago - Smoked pack every 2 days for 15yrs ETOH Use Note - Denies Drug Note - Denies Abuse/Neglect Note - Denies Social History Note 2 - Lives wtih MEDICATIONS: 1. acetaminophen - 650 mg 1 tab As needed 2. atorvastatin - 40 mg 1 tab Daily 3. atorvastatin - 80 mg 1 tab Daily 4. Brilinta - 90 mg 1 tab Daily 5. cetirizine - 10 mg 1 tab Daily 6. glipiZIDE - 5 mg 1 tab Daily 7. ibuprofen - 800 mg 1 tab Three times a day 8. Lantus Solostar - 100 unit/mL (3 mL) 50 Unit Daily 9. lisinopril - 2.5 mg 1 tab Daily 10. NovoLIN R Flexpen - 100 unit/mL (3 mL) 15 Units Three times a day 11. Synjardy - 12.5-1,000 mg 1 tab Daily 12. Vitamin D3 - 5,000 unit 1 tab Weekly Medications Last Reconciled by Zulay Beasley MD on 01/21/2025 ALLERGIES: No Known Drug Allergies REVIEW OF SYSTEMS: A complete 14-point review of systems was performed and is negative except as noted in interval history. PHYSICAL EXAMINATION: VITAL SIGNS: Temperature?97.1, B/P?98/60, Oxygen?Saturation?96% Weight?180?lbs PAIN: 0 - No pain ECOG Performance Status: 0 - Asymptomatic and fully active GENERAL APPEARANCE: Appears well, in no apparent distress, appropriately interactive. HEENT: Normocephalic, no temporal wasting, normal conjunctiva, no scleral icterus, normal hearing, lips without lesions, neck normal range of motion. CARDIOVASCULAR: Not assessed. PULMONARY: Normal respiratory effort, no respiratory distress or use of accessory muscles, speaking in full sentences, no tachypnea. EXTREMITIES: No pedal edema or cyanosis. SKIN: Normal skin appearance. NEUROLOGIC: Alert and oriented x4. PSHYCHIATRIC: Appropriate affect, mood normal, behavior normal, intact thought and speech. LABORATORY DATA: I have personally reviewed and interpreted each of the patient?s relevant lab tests, abnormal findings are below: Date 01/27/25 02/03/25 ??WHITE?BLOOD?COUNT?(Thou/mm3) 16.4?H 15.4?H ??RED?BLOOD?COUNT?(Miln/mm3) 4.44?L 4.34?L ??HEMOGLOBIN?(gm/dl) 14.0 13.9 ??HEMATOCRIT?(%) 42.8 42.1 ??PLATELET?COUNT?(Thou/mm3) 290 286 ??NEUTROPHILS?%,?AUTO?(%) 39 38 ??LYMPH?%,?AUTO?(%) 53?H 53?H ??NEUTROPHILS,?AUTO?(Thou/mm3) 6.3 5.9 ??GLUCOSE,RANDOM?(mg/dL) 147?H 170?H ??BLOOD?UREA?NITROGEN?(mg/dL) 9 12 ??CREATININE?(mg/dL) 0.80 0.90 ??SODIUM?(mmol/L) 141 143 ??POTASSIUM?(mmol/L) 4.8 4.6 ??CHLORIDE?(mmol/L) 106 105 ??CrCl?(CandG)?(ml/min) 106.31 94.50 ??AST/SGOT?(Unit/L) 21 19 ??ALT/SGPT?(Unit/L) 19 19 ??ALKALINE?PHOSPHATASE?(Unit/L) 68 65 ??BILIRUBIN,?TOTAL?(mg/dL) 1.5?H 1.5?H ??PROTEIN?TOTAL?(gm/dl) 6.7 6.2 ??ALBUMIN,?SERUM?(gm/dl) 5.1?H 4.9?H ??GLOBULIN?(gm/dl) 1.6?L 1.3?L ??ALBUMIN/GLOBULIN?RATIO 3.2?H 3.8?H ??CALCIUM,?SERUM?(mg/dL) 10.1 10.2 ??CALCIUM?SERUM?(CORRECTED)?(mg/dL) 10.1 10.2?H ASSESSMENT/PLAN: Chronic lymphocytic leukemia Patient do not have any palpable lymph nodes Reviewed old scans patient have lytic lesion in the lung which is cavitary negative for tuberculosis as well as valley fever Will send pulmonary consult to see if patient has any treatable lung lesion Patient may benefit from bronchoscopy I will follow on the labs Extensively counseled on plant-based diet today reduced risk of malignancy as well as to help with diabetic control CBC CMP tuberculosis QuantiFERON valley fever IgM testing results reviewed and are all negative Patient's LDH and haptoglobin are normal and do not reveal any hemolysis As patient do not have tuberculosis or valley fever cavitary lesion in the lungs need evaluation Follow with pulmonary Lymphadenopathy Assessment: Patient has small, stable lymph nodes in the abdomen, as evidenced by the recent PET-CT scan. The stability and small size of these lymph nodes suggest a lower likelihood of malignancy or significant pathology. Plan: - Continue monitoring through imaging studies - Reassess at 6-month follow-up appointment Elevated liver enzymes Assessment: Recent laboratory results show elevated liver enzymes. This finding requires further investigation to determine the underlying cause, which could include medication side effects, alcohol use, viral hepatitis, or other liver pathologies. Have elvated bilirubin to 2 Refer to hepatology MRI lover with contrast Prostate health screening Assessment: Patient reports no current prostate monitoring. Given the patient's gender and potential age-related risk factors, prostate screening is recommended. Plan: - Check prostate-specific antigen (PSA) levels with next set of blood work - Evaluate results at 6-month follow-up appointment ORDERS: Order # Description [id number] Comprehensive Metabolic Panel - 12 + CBC with Auto Diff + MD Follow Up 6 Month + PSA [id number] CT Scan + Chest + With Contrast [id number] MD Follow Up 3 Months [id number] MRI [id number] Erythropoieten Level + MAKSIM - 2 Mutation Quant [id number] RETURN TO CLINIC: I reviewed the diagnosis, prognosis, and recommended treatment/procedure options with the patient (and/or their legal inside sales representative), including the potential benefits, risks, side effects and alternative therapies. We also discussed the option of no treatment and the possibility of clinical trial participation, if applicable. All questions were addressed, and they demonstrated understanding. They provided informed consent to proceed with the proposed plan of care. BILLING AND COMPLIANCE: I reviewed external records from providers outside my specialty as summarized above. I spent a total of 50 minutes on this patient?s care on the day of their visit excluding time spent related to any billed procedures. This time includes time spent with the patient as well as time spent documenting in the medical record, reviewing patients records and tests, obtaining history, placing orders, communicating with other healthcare professionals, counseling the patient, family or caregiver, and/or care coordination for the diagnoses above. Electronically Signed by: {Object.Sanct_ID*PnP.NameFL@M}, {Object.Sanct_ID*PnP.Suffix@U} D: {Object.Sanct_Date} T: {Object.Sanct_Time} CC: PCP: No Primary/family, Physician Referring: Zak Lazar This document was completed utilizing speech recognition software. Grammatical errors, random word insertions, pronoun errors, and incomplete sentences are an occasional consequence of this system due to software limitations, ambient noise, and hardware issues. Any formal questions or concerns about the content, text or information contained within the body of this dictation should be directly addressed to the provider for clarification.
== END 2025-01-22 23:59 | disposition home or self-care (01) ==
LOC: SCTC 10:57
PROVIDERS: PCP Nurse Practitioner Family; Referring Provider Internal Medicine Hematology & Oncology; Visit Provider Internal Medicine Hematology & Oncology
DX: C91.10 Chronic lymphocytic leukemia of B-cell type not having achieved remission (principal); R91.8 Other nonspecific abnormal finding of lung field; R74.8 Abnormal levels of other serum enzymes
CPT/HCPCS: 99212; G0463

== ENCOUNTER → 2025-01-27 | Outpatient (CLI) | payer MEDICARE, MEDICAID, SELFPAY ==
[2025-01-27 07:40] LABS: Misc Send Out* See Sep Rpt
[2025-01-27 08:35] LABS: Basophils # (Auto) 0.1 Thou/mm3 (0.0-0.2); Basophils % (Auto) 0 % (0-2.5); Eosinophils # (Auto) 0.2 Thou/mm3 (0.0-0.5); Eosinophils % (Auto) 1 % (0-10); Hematocrit 42.8 % (41.0-53.0); Hemoglobin 14.0 g/dL (13.5-16.0); Immature Granulocytes Auto 0.08 Thou/mm3 (0.00-0.00); Lymphocytes # (Auto) 8.7 Thou/mm3 (1.0-4.8); Lymphocytes % (Auto) 53 % (10-50); Mean Corpuscular HGB Conc 32.7 g/dl (31.0-37.0); Mean Corpuscular Hemoglobin 31.5 pg (25.0-35.0); Mean Corpuscular Volume 96 fL (80-100); Monocytes # (Auto) 1.0 Thou/mm3 (0.0-0.8); Monocytes % (Auto) 6 % (0-12); Neutrophils # (Auto) 6.3 Thou/mm3 (1.8-7.7); Neutrophils % (Auto) 39 % (37-80); Nucleated Red Blood Cell # 0.00 Thou/mm3 (0.00-0.00); Nucleated Red Blood Cell % 0 /100 WBC (0); Platelet Count 290 Thou/mm3 (140-440); RDW Standard Deviation 45.0 fL (35.1-43.9); Red Blood Count 4.44 Miln/mm3 (4.50-5.90); White Blood Count 16.4 Thou/mm3 (3.8-10.6)
[2025-01-27 08:51] LABS: Alanine Aminotransferase 19 U/L (10-49); Albumin, Serum 5.1 gm/dL (3.4-4.8); Albumin/Globulin Ratio 3.2 (1.2-2.2); Alkaline Phosphatase 68 U/L (46-116); Anion Gap 10 (7-16); Aspartate Amino Transferase 21 U/L (0-34); BUN/Creatinine Ratio 11 Ratio (12-20); Bilirubin,Total 1.5 mg/dL (0.3-1.2); Blood Urea Nitrogen 9 mg/dL (9-23); Calcium 10.1 mg/dL (8.3-10.6); Calcium (Corrected) 10.1 mg/dL (8.5-10.1); Carbon Dioxide 24.7 mMol/L (20.0-31.0); Chloride 106 mMol/L (98-107); Creatinine (Component) 0.8 mg/dL (0.6-1.3); Globulin 1.6 gm/dL (2.3-3.5); Glucose 147 mg/dL (74-106); Osmolality,Calculated 282 (275-295); Potassium 4.8 mMol/L (3.4-5.1); Sodium 141 mMol/L (136-145); Total Protein 6.7 gm/dL (5.7-8.2); eGFR > 60 See Note
[2025-01-27 16:29] LABS: Path Review Blood Smear Sent to Pathologist
[2025-02-01 06:37] LABS: Erythropoietin (EPO)* 11.1 mIU/mL (2.6-18.5)
== END | disposition home or self-care (01) ==
PROVIDERS: PCP Nurse Practitioner Family; Referring Provider Internal Medicine Hematology & Oncology; Visit Provider Internal Medicine Hematology & Oncology
DX: D72.829 Elevated white blood cell count, unspecified (principal)
CPT/HCPCS: 36415; 80053; 81219; 81270; 81279; 81339; 82668; 84153; 85025

== ENCOUNTER → 2025-02-03 | Outpatient (CLI) | payer MEDICARE, MEDICAID, SELFPAY ==
[2025-02-03 08:44] LABS: Basophils # (Auto) 0.1 Thou/mm3 (0.0-0.2); Basophils % (Auto) 1 % (0-2.5); Eosinophils # (Auto) 0.2 Thou/mm3 (0.0-0.5); Eosinophils % (Auto) 1 % (0-10); Hematocrit 42.1 % (41.0-53.0); Hemoglobin 13.9 g/dL (13.5-16.0); Immature Granulocytes Auto 0.07 Thou/mm3 (0.00-0.00); Lymphocytes # (Auto) 8.1 Thou/mm3 (1.0-4.8); Lymphocytes % (Auto) 53 % (10-50); Mean Corpuscular HGB Conc 33.0 g/dl (31.0-37.0); Mean Corpuscular Hemoglobin 32.0 pg (25.0-35.0); Mean Corpuscular Volume 97 fL (80-100); Monocytes # (Auto) 1.0 Thou/mm3 (0.0-0.8); Monocytes % (Auto) 6 % (0-12); Neutrophils # (Auto) 5.9 Thou/mm3 (1.8-7.7); Neutrophils % (Auto) 38 % (37-80); Nucleated Red Blood Cell # 0.00 Thou/mm3 (0.00-0.00); Nucleated Red Blood Cell % 0 /100 WBC (0); Platelet Count 286 Thou/mm3 (140-440); RDW Standard Deviation 46.7 fL (35.1-43.9); Red Blood Count 4.34 Miln/mm3 (4.50-5.90); White Blood Count 15.4 Thou/mm3 (3.8-10.6)
[2025-02-03 09:17] LABS: Alanine Aminotransferase 19 U/L (10-49); Albumin, Serum 4.9 gm/dL (3.4-4.8); Albumin/Globulin Ratio 3.8 (1.2-2.2); Alkaline Phosphatase 65 U/L (46-116); Anion Gap 13 (7-16); Aspartate Amino Transferase 19 U/L (0-34); BUN/Creatinine Ratio 13 Ratio (12-20); Bilirubin,Total 1.5 mg/dL (0.3-1.2); Blood Urea Nitrogen 12 mg/dL (9-23); Calcium 10.2 mg/dL (8.3-10.6); Calcium (Corrected) 10.2 mg/dL (8.5-10.1); Carbon Dioxide 25.3 mMol/L (20.0-31.0); Chloride 105 mMol/L (98-107); Creatinine (Component) 0.9 mg/dL (0.6-1.3); Globulin 1.3 gm/dL (2.3-3.5); Glucose 170 mg/dL (74-106); Osmolality,Calculated 288 (275-295); Potassium 4.6 mMol/L (3.4-5.1); Sodium 143 mMol/L (136-145); Total Protein 6.2 gm/dL (5.7-8.2); eGFR > 60 See Note
== END | disposition home or self-care (01) ==
LOC: SCTO 06:46
PROVIDERS: PCP Nurse Practitioner Family; Referring Provider Internal Medicine Hematology & Oncology; Visit Provider Internal Medicine Hematology & Oncology
DX: D72.829 Elevated white blood cell count, unspecified (principal)
CPT/HCPCS: 36415; 80053; 85025

== ENCOUNTER 2025-02-23 13:24 | Outpatient (RCR) | payer MEDICARE, MEDICAID, SELFPAY ==
[2025-02-23 14:08] LABS: Basophils # (Auto) 0.1 Thou/mm3 (0.0-0.2); Basophils % (Auto) 1 % (0-2.5); Eosinophils # (Auto) 0.4 Thou/mm3 (0.0-0.5); Eosinophils % (Auto) 3 % (0-10); Hematocrit 39.5 % (41.0-53.0); Hemoglobin 12.9 g/dL (13.5-16.0); Immature Granulocytes Auto 0.05 Thou/mm3 (0.00-0.00); Lymphocytes # (Auto) 7.1 Thou/mm3 (1.0-4.8); Lymphocytes % (Auto) 51 % (10-50); Mean Corpuscular HGB Conc 32.7 g/dl (31.0-37.0); Mean Corpuscular Hemoglobin 31.3 pg (25.0-35.0); Mean Corpuscular Volume 96 fL (80-100); Monocytes # (Auto) 1.1 Thou/mm3 (0.0-0.8); Monocytes % (Auto) 8 % (0-12); Neutrophils # (Auto) 5.2 Thou/mm3 (1.8-7.7); Neutrophils % (Auto) 38 % (37-80); Nucleated Red Blood Cell # 0.00 Thou/mm3 (0.00-0.00); Nucleated Red Blood Cell % 0 /100 WBC (0); Platelet Count 253 Thou/mm3 (140-440); RDW Standard Deviation 44.7 fL (35.1-43.9); Red Blood Count 4.12 Miln/mm3 (4.50-5.90); White Blood Count 13.9 Thou/mm3 (3.8-10.6)
== END 2025-03-24 23:59 | disposition home or self-care (01) ==
LOC: SCTC 13:24
PROVIDERS: PCP Nurse Practitioner Family; Referring Provider Nurse Practitioner Family; Visit Provider Internal Medicine Hematology & Oncology
DX: C91.10 Chronic lymphocytic leukemia of B-cell type not having achieved remission (principal); R59.0 Localized enlarged lymph nodes; R74.8 Abnormal levels of other serum enzymes
CPT/HCPCS: 36415; 85025

== ENCOUNTER → 2025-03-04 | Outpatient (CLI) | payer MEDICARE, MEDICAID, SELFPAY ==
[2025-03-02 13:30] LABS: Basophils # (Auto) 0.1 Thou/mm3 (0.0-0.2); Basophils % (Auto) 1 % (0-2.5); Eosinophils # (Auto) 0.3 Thou/mm3 (0.0-0.5); Eosinophils % (Auto) 2 % (0-10); Hematocrit 42.3 % (41.0-53.0); Hemoglobin 13.7 g/dL (13.5-16.0); Immature Granulocytes Auto 0.05 Thou/mm3 (0.00-0.00); Lymphocytes # (Auto) 8.6 Thou/mm3 (1.0-4.8); Lymphocytes % (Auto) 55 % (10-50); Mean Corpuscular HGB Conc 32.4 g/dl (31.0-37.0); Mean Corpuscular Hemoglobin 31.4 pg (25.0-35.0); Mean Corpuscular Volume 97 fL (80-100); Monocytes # (Auto) 1.1 Thou/mm3 (0.0-0.8); Monocytes % (Auto) 7 % (0-12); Neutrophils # (Auto) 5.4 Thou/mm3 (1.8-7.7); Neutrophils % (Auto) 34 % (37-80); Nucleated Red Blood Cell # 0.00 Thou/mm3 (0.00-0.00); Nucleated Red Blood Cell % 0 /100 WBC (0); Platelet Count 279 Thou/mm3 (140-440); RDW Standard Deviation 46.1 fL (35.1-43.9); Red Blood Count 4.36 Miln/mm3 (4.50-5.90); White Blood Count 15.6 Thou/mm3 (3.8-10.6)
[2025-03-02 13:52] LABS: Alanine Aminotransferase 19 U/L (10-49); Albumin, Serum 4.8 gm/dL (3.4-4.8); Albumin/Globulin Ratio 2.3 (1.2-2.2); Alkaline Phosphatase 66 U/L (46-116); Anion Gap 13 (7-16); Aspartate Amino Transferase 19 U/L (0-34); BUN/Creatinine Ratio 16 Ratio (12-20); Bilirubin,Total 1.1 mg/dL (0.3-1.2); Blood Urea Nitrogen 13 mg/dL (9-23); Calcium 9.8 mg/dL (8.3-10.6); Calcium (Corrected) 9.8 mg/dL (8.5-10.1); Carbon Dioxide 24.6 mMol/L (20.0-31.0); Chloride 106 mMol/L (98-107); Creatinine (Component) 0.8 mg/dL (0.6-1.3); Globulin 2.1 gm/dL (2.3-3.5); Glucose 166 mg/dL (74-106); Osmolality,Calculated 290 (275-295); Potassium 4.6 mMol/L (3.4-5.1); Sodium 144 mMol/L (136-145); Total Protein 6.9 gm/dL (5.7-8.2); eGFR > 60 See Note
--- NOTE | 2025-03-04 14:00 | XR_ITS ---
Examination: CT chest with intravenous contrast 2-D sagittal and coronal reconstructions Exam date and time: March 04, 2025, 1431 hours INDICATIONS: Leukocytosis this week, cavitary mass left upper lobe on CT chest 12/16/2023 CTDI:vol (mGy) 11.5 DLP: (mGycm) 487 Technique: Multiple axial sections of the thorax have been obtained. Sections have been obtained, 3 mm slice thickness. Mediastinal and lung density settings have been obtained. Intravenous contrast administered, 60 cc Isovue-370. 2-D sagittal, coronal images obtained. Low dose protocols were performed. One or more of the following dose reduction techniques were used; automated exposure control, adjustment of the mA and/or KV according to patient size, use of iterative reconstruction technique. Findings: No thoracic aortic aneurysmal dilatation or dissection No pulmonary artery filling defects Moderate calcification left anterior descending coronary artery No paratracheal tracheobronchial or bronchopulmonary adenopathy Cavitary lesion left upper lobe measures 16 mm compared to 16 mm on the prior study Stable 3 mm pulmonary nodule left upper lobe No interval pneumonia or pulmonary edema No visualized liver or splenic lesion No gallstones No pancreatic or adrenal mass No hydronephrosis IMPRESSION: Stable cavitary lesion left upper lobe, 16 mm Stable 3 mm pulmonary nodule left upper lobe No new pulmonary nodules
== END | disposition home or self-care (01) ==
PROVIDERS: PCP Nurse Practitioner Family; Referring Provider Internal Medicine Hematology & Oncology; Visit Provider Internal Medicine Hematology & Oncology
DX: R91.1 Solitary pulmonary nodule (principal)
CPT/HCPCS: 36415; 71260; 80053; 85025; A4649; Q9967

== ENCOUNTER → 2025-03-17 | Outpatient (CLI) | payer MEDICARE, MEDICAID, SELFPAY ==
--- NOTE | 2025-03-17 08:00 | XR_ITS ---
Examination: MRI abdomen with intravenous contrast. MRI abdomen without intravenous contrast. Date and time of exam: March 17, 2025, 0821 hours, comparison CT chest February 02, 2025, PET/CT scan June 04, 2024 INDICATIONS: Diagnosis elevated white blood cell count, unspecified, leukocytosis, MRI liver to evaluate for liver metastases or cirrhosis Technique: Multiple axial, sagittal and coronal sections of the abdomen obtained. Transverse images, TR 6020, TE 107. T1 weighted transverse images, TR 582, TE 9.5. T2-weighted sagittal images, TR 4000, TE 105. T2-weighted sagittal images, TR 4000, TE 5. Coronal images, TR 4210, TE 107. Axial and coronal images are obtained post 19 cc intravenous injection, gadolinium. Findings: Liver is smooth in contour, precontrast images demonstrate no focal liver lesions No intrahepatic biliary tract dilatation No common hepatic or common bile duct stones Negative for splenomegaly Normal adrenal glands 18 mm mid to upper pole right renal cysts Contracted gallbladder Stable 12 mm left lateral para-aortic lymph node compared with PET/CT scan June 04, 2024 No ascites Post contrast images demonstrate no abnormal liver splenic or renal lesions IMPRESSION: Liver is smooth in contour, no findings of cirrhosis No focal liver lesions Negative for splenomegaly Negative for ascites
== END | disposition home or self-care (01) ==
PROVIDERS: Referring Provider Internal Medicine Hematology & Oncology; Visit Provider Internal Medicine Hematology & Oncology
DX: D72.829 Elevated white blood cell count, unspecified (principal)
CPT/HCPCS: 74183; A9577